=== PATIENT | female | born 1980 | race Asian ===

== ENCOUNTER 2020-10-29 11:50 | Emergency (ER) | payer OTHER ==
[2020-10-29 12:18] LABS: BASOPHILS % (AUTO) 1.2 %; EOSINOPHILS # (AUTO) 0.2 10^3/uL (0.0-0.7); EOSINOPHILS % (AUTO) 4.4 %; HCT - HEMATOCRIT 25.3 % (37.0-47.0); LYMPHOCYTES # (AUTO) 0.8 10^3/uL (1.5-3.5); LYMPHOCYTES % (AUTO) 24.2 %; MEAN CORPUSCULAR HGB CONC 24.1 g/dL (32.0-36.0); MEAN CORPUSCULAR VOLUME 62.3 fL (81.0-99.0); MEAN PLATELET VOLUME 8.9 fL (7.9-10.8); MONOCYTES # (AUTO) 0.3 10^3/uL (0.0-1.0); MONOCYTES % (AUTO) 9.7 %; NEUTROPHILS # (AUTO) 2.1 10^3/uL (1.5-6.6); NEUTROPHILS % (AUTO) 60.5 %; PLT - PLATELET COUNT 423 10^3/uL (130-450); RED BLOOD COUNT 4.06 10^6/uL (4.20-5.40); WHITE BLOOD COUNT 3.4 x10^3/uL (4.8-10.8)
[2020-10-29 12:21] LABS: HGB - HEMOGLOBIN 6.1 g/dL (12.0-16.0)
[2020-10-29 12:22] LABS: SLIDE REVIEW? Indicated
[2020-10-29 12:36] LABS: ALBUMIN 4.2 g/dL (3.2-5.5); ALBUMIN/GLOBULIN RATIO 1.6 (1.0-2.2); BILIRUBIN,TOTAL 0.4 mg/dL (0.2-1.0); CREATININE 0.6 mg/dL (0.4-1.0); POTASSIUM 3.6 mmol/L (3.5-5.0); TOTAL PROTEIN 6.9 g/dL (6.7-8.2)
[2020-10-29] MEDS ORDERED: PANTOPRAZOLE 40 MG VIAL IVP STA (12:40)
--- NOTE | 2020-10-29 12:40 | ED Physician Documentation ---
PD HPI CHEST PAIN - Stated complaint Stated Complaint: CHEST PX - Chief complaint Chief Complaint: Cardiac - History obtained from History obtained from: Patient - Additional information Additional information: Healthy 40-year-old woman who has painful heavy periods but no history of heart issues or DVT/PE presents with 4 days of focal substernal chest pain which is worse at night and with supine position is also worse after eating. Recently started naproxen for her dysmenorrhea. She is on her menses now. Has never been told that she was anemic. No dark or tarry stools. Review of Systems Ten Systems: 10 systems reviewed and negative Constitutional: reports: Reviewed and negative. denies: Fatigue Cardiac: reports: Chest pain / pressure, Reviewed and negative. denies: Palpitations Respiratory: denies: Dyspnea, Cough PD PAST MEDICAL HISTORY - Past Medical History Past Medical History: Yes GI: GERD - Past Surgical History Past Surgical History: No - Present Medications Home Medications: Ambulatory Orders Medication Instructions Recorded Confirmed Omeprazole 40 mg PO DAILY #30 cap 10/29/20 - Allergies Allergies/Adverse Reactions: Allergies Allergy/AdvReac Type Severity Reaction Status Date / Time amoxicillin AdvReac Rash Verified 10/29/20 11:57 - Social History Does the pt smoke?: No Smoking Status: Never smoker Does the pt drink ETOH?: Yes Does the pt have substance abuse?: No - Immunizations Immunizations are current?: Yes - POLST Patient has POLST: No PD ED PE NORMAL - Vitals Vital signs reviewed: Yes - General General: Alert and oriented X 3, No acute distress - HEENT HEENT: PERRL, EOMI - Neck Neck: Supple, no meningeal sign, No bony TTP - Cardiac Cardiac: RRR, No murmur - Respiratory Respiratory: No respiratory distress, Clear bilaterally - Abdomen Abdomen: Soft, Non tender - Back Back: No CVA TTP, No spinal TTP - Derm Derm: Normal color, Warm and dry - Extremities Extremities: No edema, No calf tenderness / cord - Neuro Neuro: Alert and oriented X 3, Normal speech Results - Vitals Vitals: Vital Signs - 24 hr 10/29/20 10/29/20 10/29/20 11:54 12:44 12:46 Temperature 36.4 C L Heart Rate 72 70 80 Respiratory 16 19 Rate Blood Pressure 115/69 117/62 O2 Saturation 100 99 10/29/20 10/29/20 13:57 14:02 Temperature 37.1 C 36.9 C Heart Rate 69 65 Respiratory 17 14 Rate Blood Pressure 101/65 100/64 O2 Saturation Oxygen O2 Source Room air - EKG (time done) 1205 Rate: Rate (enter#) (61) Rhythm: NSR [place]: Normal Intervals: Normal CT QRS: Normal Ischemia: Normal ST segments Computer interpretation: Agree with computer - Labs Labs: Laboratory Tests 10/29/20 10/29/20 10/29/20 12:10 12:10 12:10 WBC 3.4 L RBC 4.06 L Hgb 6.1 L* Hct 25.3 L MCV 62.3 L MCH 15.0 L MCHC 24.1 L RDW 22.0 H Plt Count 423 MPV 8.9 Neut # (Auto) 2.1 Lymph # (Auto) 0.8 L [place] # (Auto) 0.3 Eos # (Auto) 0.2 Baso # (Auto) 0.0 Absolute Nucleated RBC 0.00 Nucleated RBC % 0.0 Manual Slide Review Indicated RBC Morph Micro Appear 3+ HYPOCHROMASIA Sodium 140 Potassium 3.6 Chloride 108 Carbon Dioxide 23 Anion Gap 9.0 BUN 8 Creatinine 0.6 Estimated GFR (MDRD) 110 Glucose 95 Calcium 9.0 Total Bilirubin 0.4 AST 13 ALT 11 Alkaline Phosphatase 38 L Troponin I High Sens 2.5 Total Protein 6.9 Albumin 4.2 Globulin 2.7 Albumin/Globulin Ratio 1.6 Lipase 26 Urine Color Urine Clarity Urine pH Ur Specific Eldred Urine Protein Urine Glucose (UA) Urine Ketones Urine Occult Blood Urine Nitrite Urine Bilirubin Urine Urobilinogen Ur Leukocyte Esterase Urine RBC Urine WBC Ur Squamous Epith Cells Amorphous Sediment Urine Bacteria Urine Mucus Ur Microscopic Review Urine Culture Comments Urine HCG, Qual Blood Type Blood Type Recheck Antibody Screen Crossmatch IS Only 10/29/20 10/29/20 10/29/20 12:10 12:34 12:34 WBC RBC Hgb Hct MCV MCH MCHC RDW Plt Count MPV Neut # (Auto) Lymph # (Auto) [place] # (Auto) Eos # (Auto) Baso # (Auto) Absolute Nucleated RBC Nucleated RBC % Manual Slide Review RBC Morph Micro Appear Sodium Potassium Chloride Carbon Dioxide Anion Gap BUN Creatinine Estimated GFR (MDRD) Glucose Calcium Total Bilirubin AST ALT Alkaline Phosphatase Troponin I High Sens Total Protein Albumin Globulin Albumin/Globulin Ratio Lipase Urine Color DARK YELLOW Urine Clarity SL. CLOUDY Urine pH 6.0 Ur Specific Eldred >=1.030 H Urine Protein NEGATIVE Urine Glucose (UA) NEGATIVE Urine Ketones NEGATIVE Urine Occult Blood LARGE H Urine Nitrite NEGATIVE Urine Bilirubin NEGATIVE Urine Urobilinogen 0.2 (NORMAL) Ur Leukocyte Esterase NEGATIVE Urine RBC TNTC H Urine WBC 4-5 Ur Squamous Epith Cells FEW Squamous Amorphous Sediment Rare Urine Bacteria Few Urine Mucus Few Strands Ur Microscopic Review INDICATED Urine Culture Comments NOT INDICATED Urine HCG, Qual NEGATIVE Blood Type Blood Type Recheck O POSITIVE Antibody Screen Crossmatch IS Only 10/29/20 12:40 WBC RBC Hgb Hct MCV MCH MCHC RDW Plt Count MPV Neut # (Auto) Lymph # (Auto) [place] # (Auto) Eos # (Auto) Baso # (Auto) Absolute Nucleated RBC Nucleated RBC % Manual Slide Review RBC Morph Micro Appear Sodium Potassium Chloride Carbon Dioxide Anion Gap BUN Creatinine Estimated GFR (MDRD) Glucose Calcium Total Bilirubin AST ALT Alkaline Phosphatase Troponin I High Sens Total Protein Albumin Globulin Albumin/Globulin Ratio Lipase Urine Color Urine Clarity Urine pH Ur Specific Eldred Urine Protein Urine Glucose (UA) Urine Ketones Urine Occult Blood Urine Nitrite Urine Bilirubin Urine Urobilinogen Ur Leukocyte Esterase Urine RBC Urine WBC Ur Squamous Epith Cells Amorphous Sediment Urine Bacteria Urine Mucus Ur Microscopic Review Urine Culture Comments Urine HCG, Qual Blood Type O POSITIVE Blood Type Recheck Antibody Screen NEGATIVE Crossmatch IS Only See Detail PD MEDICAL DECISION MAKING - ED course ED course: 40-year-old woman with low risk chest pain. Seems like the pain is likely related to naproxen which she was taking for dysmenorrhea. Noted to be severely anemic. She has no dark or tarry stools and does have heavy menses so I suspect this is more of a subacute to chronic process. Also evidenced by her low MCV. She was transfused 1 unit of packed red cells here and close follow-up was advised. We will also start a PPI. Otherwise no evidence of ACS on EKG or biomarkers. Nothing in the history or physical to suggest PE. Departure - Departure Disposition: 01 Home, Self Care Clinical Impression: Atypical chest pain, Anemia due to chronic blood loss Condition: Good Record reviewed to determine appropriate education?: Yes Instructions: ED Chest Pain NonCardiac Prescriptions: Omeprazole 40 mg PO DAILY #30 cap Comments: You are seen today for chest pain which I think is likely related to the naproxe n you were put on. For that I would stop the naproxen and I am starting a proton pump inhibitor. You were found to be very anemic, hemoglobin of 6.1, hematocrit 25.3, and your red cells are small, with a MCV of 62.3. This suggests chronic blood loss likely from your menses. Follow-up with your primary care physician in 2 days for recheck and likely repeat labs. They may refer you to a target aircraft controller to manage your heavy periods.
--- NOTE | 2020-10-29 12:43 | XRAY Report ---
PROCEDURE: Chest 1 View X-Ray INDICATIONS: Chest Pain TECHNIQUE: One view of the chest was acquired. COMPARISON: none FINDINGS: Surgical changes and devices: None. Lungs and pleura: No pleural effusions or pneumothorax. Lungs are clear. Mediastinum: Mediastinal contours appear normal. Heart size is normal. Bones and chest wall: No suspicious bony lesions. Overlying soft tissues appear unremarkable. IMPRESSION: No acute pulmonary process. Reviewed by: Charleen Quick MD on 10/29/2020 12:41 PM PDT Approved by: Charleen Quick MD on 10/29/2020 12:41 PM PDT Station ID: [id number]
[2020-10-29 12:50] LABS: BILIRUBIN,URINE NEGATIVE (NEGATIVE); GLUCOSE, URINE (UA) NEGATIVE (NEGATIVE); KETONES,URINE (UA) NEGATIVE (NEGATIVE); LEUKOCYTE ESTERASE, URINE NEGATIVE (NEGATIVE); NITRITE,URINE NEGATIVE (NEGATIVE); OCCULT BLOOD,URINE LARGE (NEGATIVE); PROTEIN,URINE NEGATIVE (NEGATIVE); UROBILINOGEN,URINE 0.2 (NORMAL) E.U./dL (NORMAL)
[2020-10-29 12:58] LABS: AMORPHOUS SEDIMENT,UR Rare /LPF; BACTERIA,URINE Few /HPF (None Seen); CLARITY,URINE SL. CLOUDY (CLEAR); HCG UR QUAL NEGATIVE; MUCUS,URINE Few Strands; RBC,URINE TNTC /HPF (0-5); SQUAMOUS EPITHELIAL CELL,UR FEW Squamous (<= Few)
[2020-10-29 16:14] VITALS: BP 112/70
== END 2020-10-29 16:14 | disposition home or self-care (01) ==
LOC: ED 11:50
DX: R07.89 Other chest pain (principal); D50.0 Iron deficiency anemia secondary to blood loss (chronic); N92.0 Excessive and frequent menstruation with regular cycle; N94.6 Dysmenorrhea, unspecified; K21.9 Gastro-esophageal reflux disease without esophagitis
CPT/HCPCS: 36415; 36430; 71045; 80053; 81001; 81025; 83690; 84484; 85025; 86850; 86900; 86901; 86920; 87086; 93005; 96374; 99284; 99285; P9016; 81003

== ENCOUNTER 2021-04-07 11:17 | Outpatient (CLI) | payer OTHER ==
--- NOTE | 2021-04-07 15:41 | XRAY Report ---
PROCEDURE: Thoracic Spine 2 View INDICATIONS: HISTORY OF FALLING TECHNIQUE: 3 views of the thoracic spine were acquired. COMPARISON: None. FINDINGS: Bones: No fractures or dislocations. No suspicious bony lesions. 12 pairs of ribs are noted, and a ppear intact where visualized. No acute compression fractures. Soft tissues: No paravertebral stripe thickening. IMPRESSION: Thoracic spine without acute fracture or malalignment. Reviewed by: Taz Stanley MD on 04/07/2021 3:26 PM PST Approved by: Taz Stanley MD on 04/07/2021 3:26 PM PST Station ID: [id number]
--- NOTE | 2021-04-07 15:41 | XRAY Report ---
PROCEDURE: Cervical Spine 2 View INDICATIONS: HISTORY OF FALLING TECHNIQUE: 3 view(s) of the cervical spine were acquired. COMPARISON: None. FINDINGS: Bones: No fractures or dislocations to the T1 level. The lateral masses of C1 appear intact on the odontoid view. No suspicious bony lesions. Straightening of cervical lordosis. Minimal multilevel c ervical spondylosis with degenerative endplate changes and mild endplate osteophytes. Findings are mo st pronounced from C4-5 through C6-7. Soft tissues: No prevertebral soft tissue swelling. IMPRESSION: Cervical spine without acute fracture or traumatic malalignment. Straightening of cervical lordosis likely related to positioning and/or concurrent muscle spasms. Mild multilevel cervical spondylosis. Reviewed by: Taz Stanley MD on 04/07/2021 3:25 PM PST Approved by: Taz Stanley MD on 04/07/2021 3:25 PM [facility] Station ID: [id number]
--- NOTE | 2021-04-07 16:47 | XRAY Report ---
PROCEDURE: Foot 3 View LT INDICATIONS: HISTORY OF FALLING TECHNIQUE: 3 weight bearing views of the foot were acquired. COMPARISON: None FINDINGS: Bones: No acute fractures or dislocations. No suspicious bony lesions. There is mild pes planus wit h weightbearing views. Calcaneal pitch angle measures approximately 13 degrees. Soft tissues: No tibiotalar joint effusion. Achilles tendon appears normal. IMPRESSION: Mild pes planus. Reviewed by: Taz Stanley MD on 04/07/2021 4:45 PM [facility] Approved by: Taz Stanley MD on 04/07/2021 4:45 PM [facility] Station ID: [id number]
== END 2021-04-07 23:59 ==
LOC: DI.N 11:17
PROVIDERS: ATTEND Family Medicine
DX: M47.812 Spondylosis without myelopathy or radiculopathy, cervical region (principal); M21.42 Flat foot [pes planus] (acquired), left foot